=== PATIENT | female | born 1995 | race African-American/Black ===

== ENCOUNTER 2016-11-03 22:33 | Emergency (ER) | payer OTHER | END 2016-11-03 22:38 | disposition home or self-care (01) | LOC: ER 22:33 | DX: J20.9 Acute bronchitis, unspecified (principal); E66.9 Obesity, unspecified; Z88.6 Allergy status to analgesic agent | CPT/HCPCS: 87502; 87651 ==

== ENCOUNTER 2016-11-18 14:00 | Emergency (ER) | payer OTHER | END 2016-11-18 14:54 | disposition home or self-care (01) | LOC: ER 14:00 | DX: S50.02XA Contusion of left elbow, initial encounter (principal); E66.9 Obesity, unspecified; Z88.6 Allergy status to analgesic agent; W22.01XA Walked into wall, initial encounter ==